=== PATIENT | female | born 1985 | race Caucasian/White ===

== ENCOUNTER 2023-04-28 17:34 | Observation (INO) | payer BC ==
[2023-04-28] MEDS ORDERED: Misoprostol 200 MCG Tab ONE (18:06)
[2023-04-28] MEDS ORDERED: Sodium Chloride 0.9% 1,000 ML ONE (18:17)
[2023-04-28] MEDS ORDERED: Methylergonovine 0.2 MG/1 ML Amp IM STA (18:26)
[2023-04-28] MEDS ORDERED: Misoprostol 100 MCG Tab PO STA (18:49)
[2023-04-28] MEDS ORDERED: Sodium Chloride 0.9% 1,000 ML IV ONE (18:50)
[2023-04-28 18:55] LABS: HEMATOCRIT 34.5 % (37.0-47.0); HEMOGLOBIN 12.1 gm/dl (12.0-16.0); MEAN CORPUSCULAR HEMOGLOBIN 30.3 pg (28.0-32.0); MEAN CORPUSCULAR HGB CONC 35.1 g/dl (32.0-36.0); MEAN CORPUSCULAR VOLUME 86.5 fl (83.0-99.0); MEAN PLATELET VOLUME 10.2 fl (9.4-12.3); PLATELET COUNT,PLT 240 K/mm3 (150-400); RED BLOOD CELL COUNT 3.99 M/mm3 (4.10-5.30); WHITE BLOOD CELL COUNT,WBC 12.26 K/mm3 (3.9-11.3)
[2023-04-28] MEDS ORDERED: Ondansetron 4 MG/2 ML SDV IVPUSH PRN (19:55)
[2023-04-28] MEDS ORDERED: Ibuprofen 600 MG Tab PO PRN (19:55)
[2023-04-28] MEDS ORDERED: Acetaminophen/oxyCODONE 325-5 MG Tab PO PRN (19:55)
[2023-04-28] MEDS: Doxycycline Monohydrate 100 MG Cap PO SCH (21:14)
[2023-04-29] MEDS: Acetaminophen/oxyCODONE 325-5 MG Tab PO PRN ×2 (00:24→05:37)
[2023-04-29] MEDS: Doxycycline Monohydrate 100 MG Cap PO SCH (07:37)
== END 2023-04-29 08:55 | disposition home or self-care (01) ==
LOC: JD.ED 17:34 → JD.OB 19:50 → JD.ED 19:50
PROVIDERS: ADMIT Obstetrics & Gynecology; ATTEND Obstetrics & Gynecology
DX: O02.1 Missed abortion (principal); N93.9 Abnormal uterine and vaginal bleeding, unspecified
CPT/HCPCS: 36415; 85027; 86850; 86900; 86901; 96372; 99284; A9270; G0378; J2210; J7030